=== PATIENT | female | born 1970 | race Caucasian/White ===

== ENCOUNTER → 2016-07-15 | Outpatient (CLI) | payer OTHER ==
[~2016-07-15] MED LIST: CALTRATE 600 +1 EAC1 PO; COPAXONE40 MG/1 ML SC; CYCLOBENZAPRINE10 MG PO; DAILY MULTIPLE1 EACH PO; ENDOCET 5-3251 EACH PO; LYRICA100 MG PO; NABUMETONE500 MG PO; TORADOL10 MG PO; TURMERIC500 MG PO; VENLAFAXINE HC150 M1 PO; ZOFRAN4 MG PO
== END | disposition home or self-care (01) ==
LOC: NUC 07:53
DX: R26.2 Difficulty in walking, not elsewhere classified (principal)
CPT/HCPCS: 78645; A9539

== ENCOUNTER 2016-12-22 22:01 | Inpatient (IN) | payer OTHER ==
[~2016-12-22] VITALS: Ht 167.6 cm; Wt 112.9 kg
[~2016-12-22 22:01] MED LIST changes: +FLEXERIL10 MG PO; +NEURONTIN100 MG PO; +VENLAFAXINE225 MG PO; +ZANAFLEX4 MG PO
[2016-12-23 06:05] VITALS: BP 117/71
[2016-12-23 11:45] VITALS: BP 135/76
[2016-12-23 15:38] VITALS: BP 127/72
[2016-12-23 19:25] VITALS: BP 122/61
[2016-12-23 23:30] VITALS: BP 120/57
[2016-12-24 02:55] VITALS: BP 108/59
[2016-12-24 07:58] VITALS: BP 126/65
[2016-12-24] MEDS ORDERED: CYCLOBENZAPRINE10 MG PO (08:55)
[2016-12-24] MEDS ORDERED: HYDROCODON-ACE1 EAC7 PO (08:55)
== END 2016-12-24 11:16 | disposition home or self-care (01) | DRG 32 ==
LOC: ENRESERV 22:01 → 3EAST 12-23 05:34 → 2SOUTH 12-23 05:34 → EDSTATUS 12-23 08:43 → 2SOUTH 12-23 08:44 → ENRESERV 12-23 09:40 → 3EAST 12-23 11:46 → 2SOUTH 12-23 12:32 → SDC 12-23 13:57 → 3EAST 12-23 15:24 → ENPENDDIS 12-24 → 3EAST 12-24 11:16
PROC: 0WWG4JZ Revision of Synthetic Substitute in Peritoneal Cavity, Percutaneous Endoscopic Approach (ICD-10-PCS; principal; 2016-12-23)
PROC: 00W60JZ Revision of Synthetic Substitute in Cerebral Ventricle, Open Approach (ICD-10-PCS; principal; 2016-12-23)
DX: T85.09XA Other mechanical complication of ventricular intracranial (communicating) shunt, initial encounter (principal); Y83.1 Surgical operation with implant of artificial internal device as the cause of abnormal reaction of the patient, or of later complication, without mention of misadventure at the time of the procedure; G91.9 Hydrocephalus, unspecified; I34.1 Nonrheumatic mitral (valve) prolapse; G35 Multiple sclerosis; M79.7 Fibromyalgia
CPT/HCPCS: 70450; C1769; C1894; J0330; J0690; J1100; J2250; J2405; J2765; J3010; J3480